=== PATIENT | female | born 1965 | race Caucasian/White ===

== ENCOUNTER → 2016-07-03 | Outpatient (CLI) | payer OTHER ==
[~2016-07-03] MED LIST: ALPRAZOLAM0.5 MG PO; AMLODIPINE BESYL5 MG PO; ANEXSIA 7.5/3251 TA1 PO; ASPIRIN81 MG PO; CELEXA PO; CYANOCOBAL1000 MCG/1 INJ; DEXILANT60 MG PO; FLOMAX0.4 M1 DOB; HYDROCODON-ACE1 EAC5 PO; HYDROCODONE/APA1 T16 PO; LANSOPRAZOLE30 M2 PO; LO-DOSE ASPIRIN81 M1 PO; LORTAB 10/500 T1 TAB PO; LORTAB 7.51 TAB 7.5/ DOB; NAPROXEN PO; ONDANSETRON HCL4 M1 PO; TRIAMTERENE-HCT1 TA6 PO; VITAMIN B12 SHOT
--- NOTE | ~2016-07-03 | CT57 ---
[facility] A Service of [facility] & [facility] RADIOLOGY TEXT RESULTS PATIENT: TRU KING LOCATION: [facility] : 63 UNIT #: [id number] AGE: [address]: Shaun Randhawa MD SEX: F ORDER DR: [id number] [facility] [address] [facility]. [place], [place] [address] [id number] O MR#: [id number] Acc #: [id number] NAME: TRU KING : 1965 SEX: F STUDY DATE/TIME: 07/03/2016 7:22 UNIT: [facility] ROOM: STUDY DESCRIPTION: CT Chest Wo Cont Attending Physician: Shaun Randhawa M.D. Ordering Physician: Shaun Randhawa M.D. Primary Care Physician: Deann Knutson M.D. MEDICAL IMAGING REPORT This report is preliminary unless electronic signature is present EXAM CT chest without contrast INDICATION Lung cancer. Patient also has a history of malignant neoplasm of the peritoneum. This exam is requested for surveillance for metastatic disease. Comparison is made to prior study from 05/08/2016. TECHNIQUE Axial CT images were obtained from the thoracic inlet through the dome of the diaphragm. No intravenous contrast material was administered. This CT exam was performed with one or more of the following radiation dose reduction techniques: automatic control, adjustment of mA and/or kV according to patient size, and iterative reconstruction. FINDINGS Patient has innumerable noncalcified pulmonary nodules characteristic of metastatic disease. There has been what I think is probably a wedge resection of a previously identified nodule which was seen within the left upper lobe on a study from March of 2016. Many of these nodules I think are stable in size when compared to the prior exam, however I do think a few of them have increased in size which may reflect some mild progression of disease. For example 1 adjacent to the left cardiac border now measures 7 mm in size. Previously measured about 3 mm. While another which is adjacent to inferior right pulmonary vein that measures 5 mm previously it measured about 4 mm. The thyroid gland and trachea appear within normal limits. There is a small hiatal hernia. There is no pleural or pericardial effusion. This patient has a left internal subclavian vein MediPort which terminates in the superior vena cava on these images the reservoir of the port does appear to be oriented perpendicular to the sternum rather than parallel to it which potentially may make this port difficult to access. Mediastinal STS. [facility] A Service of [facility] & [facility] RADIOLOGY TEXT RESULTS PATIENT: TRU KING LOC[facility]: [facility] : 63 UNIT #: [id number] AGE: [address]: Shaun Randhawa MD SEX: F ORDER DR: lymph nodes do not appear pathologically enlarged. Images through the upper abdomen do not demonstrate any acute abnormalities. Review of bony windows does not demonstrate any aggressive osseous abnormalities. IMPRESSION 1. Patient is again noted to have innumerable noncalcified pulmonary nodules characteristic of pulmonary metastatic disease. Many of the nodules are stable in size and appearance when compared to the prior study from March of 2016 however I do think some of them have increased slightly in size which may reflect some mild progression of disease. No new nodules are identified. 2. Patient is noted to have a left subclavian MediPort which terminates in the superior vena cava. The reservoir of the port is oriented perpendicular to the sternum rather than parallel to it which potentially may make it difficult to access. Please see the body of the report for any other additional incidental findings. Dictated by... Kathie Key M.D. THIS IS AN ELECTRONICALLY VERIFIED REPORT Kathie Key M.D. at 07/04/2016 4:46 PM AFF/rnr TD: 07/03/2016 19:39 JOB #: [id number] MEDICAL IMAGING REPORT COPY
== END | disposition home or self-care (01) ==
LOC: CCAT 06:57
DX: C78.01 Secondary malignant neoplasm of right lung (principal); C48.2 Malignant neoplasm of peritoneum, unspecified; D50.9 Iron deficiency anemia, unspecified; R91.1 Solitary pulmonary nodule; M54.5 Low back pain; R91.8 Other nonspecific abnormal finding of lung field
CPT/HCPCS: 71250

== ENCOUNTER → 2016-07-11 | Outpatient (CLI) | payer MEDICARE ==
--- NOTE | ~2016-07-11 | XA80 ---
[facility] A Service of [facility] & [facility] RADIOLOGY TEXT RESULTS PATIENT: TRU KING LOCATION: [facility] : 63 UNIT #: [id number] AGE: [address]: Shaun Randhawa MD SEX: F ORDER DR: [id number] [facility] [address] [facility]. [place], [place] [address] [id number] O MR#: [id number] Acc #: [id number] NAME: TRU KING : 1965 SEX: F STUDY DATE/TIME: 07/11/2016 8:48 UNIT: [facility] ROOM: STUDY DESCRIPTION: XA CVC Remove Tunneled Cath W Attending Physician: Shaun Randhawa M.D. Ordering Physician: Shaun Randhawa M.D. Primary Care Physician: Primary Care Physician No MEDICAL IMAGING REPORT This report is preliminary unless electronic signature is present EXAM Port-A-Cath extraction 07/11/2016. HISTORY The patient no longer utilizing a left subclavian Port-A-Cath PROCEDURE Informed consent was obtained. Full standard sterile technique was utilized including sterile preparation, barrier draping, sterile gowns and gloves as well as caps and masks. The prior incision was anesthetized locally, and new incision created. This was used to extract in-total the Port-A-Cath and infusion catheter. The pocket was then closed with interrupted deep fascial 3-0 Vicryl sutures and running subcuticular 4-0 Monocryl sutures and butylcyanoacrylate glue. There were no complications. fentanyl and Versed were administered for IV conscious sedation. Monitoring provided by the nursing staff throughout the procedure. Total sedation time 30 minutes. Total fluoroscopy time 0.1 minutes, 2 spot images obtained. IMPRESSION Successful extraction of left subclavian Jslglv-S-Bvxy. No complications. Dictated by... Luis Martinez M.D. THIS IS AN ELECTRONICALLY VERIFIED REPORT Luis Martinez M.D. at 07/16/2016 5:08 PM TEV/jenn [facility] A Service of [facility] & [facility] RADIOLOGY TEXT RESULTS PATIENT: TRU KING LOCATION: [facility] : 63 UNIT #: [id number] AGE: [address]: Shaun Randhawa MD SEX: F ORDER DR: TD: 07/14/2016 11:48 JOB #: [id number] MEDICAL IMAGING REPORT COPY
[2016-07-11 08:39] LABS: HEMATOCRIT 37.3 % (35.0-45.0); HEMOGLOBIN 12.2 gm/dL (12.0-16.0); MEAN CELL VOLUME 82.8 FL (83-96); MEAN CORPUSCULAR HEMOGLOBIN 27.1 PG (28-34); MEAN CORPUSCULAR HGB CONC 32.7 g/dL (30-36); RED BLOOD COUNT 4.5 X10e (3.90-5.30); RED CELL DISTRIBUTION WIDTH 17.4 % (11.0-15.5); WHITE BLOOD COUNT 5.3 X10e3 (4.0-10.5)
[2016-07-11 08:49] LABS: PARTIAL THROMBOPLASTIN TIME 27.1 SECONDS (23.5-31.3)
== END | disposition home or self-care (01) ==
LOC: CIVR 08:02
PROVIDERS: Internal Medicine Hematology & Oncology
DX: Z45.2 Encounter for adjustment and management of vascular access device (principal); D50.9 Iron deficiency anemia, unspecified; C48.2 Malignant neoplasm of peritoneum, unspecified; R91.1 Solitary pulmonary nodule; M54.5 Low back pain; C78.01 Secondary malignant neoplasm of right lung; T82.868A Thrombosis due to vascular prosthetic devices, implants and grafts, initial encounter; I10 Essential (primary) hypertension; Z79.899 Other long term (current) drug therapy; Z79.82 Long term (current) use of aspirin; Z80.9 Family history of malignant neoplasm, unspecified; Z80.3 Family history of malignant neoplasm of breast; Z88.1 Allergy status to other antibiotic agents; Z88.8 Allergy status to other drugs, medicaments and biological substances
CPT/HCPCS: 36415; 77001; 85027; 85610; 85730; J2250; J3010

== ENCOUNTER → 2016-08-13 | Outpatient (CLI) | payer MEDICARE ==
--- NOTE | ~2016-08-13 | CT57 ---
[facility] A Service of [facility] & [facility] RADIOLOGY TEXT RESULTS PATIENT: TRU KING LOCATION: [facility] : 63 UNIT #: [id number] AGE: [address]: Shaun Randhawa MD SEX: F ORDER DR: [id number] [facility] [address] [facility]. [place], [place] [address] [id number] O MR#: [id number] Acc #: [id number] NAME: TRU KING : 1965 SEX: F STUDY DATE/TIME: 08/13/2016 08:58 UNIT: [facility] ROOM: STUDY DESCRIPTION: CT Chest Wo Cont Attending Physician: Shaun Randhawa M.D. Referring Physician: Shaun Randhawa M.D. Ordering Physician: Shaun Randhawa M.D. Primary Care Physician: Shaun Randhawa M.D. MEDICAL IMAGING REPORT This report is preliminary unless electronic signature is present EXAM CT chest without contrast 08/13/2016 0858 hours HISTORY Left-sided chest pain since March 2016 worsening over the past 2 weeks. Followup lung nodule. History of previous leiosarcoma of the abdomen, previous lung cancer. COMPARISON CT chest 07/03/2016. TECHNIQUE Helical noncontrasted images were obtained from the thoracic inlet through the adrenal glands. Sagittal and coronal reconstructions were performed. Total exam DLP 197 mGy-cm. This CT examination was performed with one or more of the following radiation dose reduction techniques: automatic exposure control, adjustment of mA and/or kV according to patient size, and iterative reconstruction. FINDINGS Images through the thoracic inlet are normal. Images through the chest demonstrate mild coronary calcifications. There is no pathologic adenopathy. Benign calcified right paratracheal nodes are present and unchanged. There is no pericardial or pleural fluid. There is a very small esophageal hiatal hernia. Lung window images demonstrate bilateral multiple well circumscribed noncalcified pulmonary and parenchymal nodules with mid and lower lobe predominance. These are unchanged in number. Nodules are felt to be stable to slightly increased in size. Example right apical nodule is 8 mm previously 6 mm. Example right lower lobe nodule abutting the posterior margin of the dome of the diaphragm is 0.65 cm previously 0.47 cm. [facility] A Service of [facility] RADIOLOGY TEXT RESULTS PATIENT: TRU KING LOCATION: [facility] : 63 UNIT #: [id number] AGE: [address]: Shaun Randhawa MD SEX: F ORDER DR: Example left lower lobe nodule abutting the left posterior pericardium measures 0.66 cm previously 0.69 cm. Example nodule at the lateral left lower lobe measures 0.75 cm previously 0.61 cm. No definite new nodules are seen. There is no superimposed airspace density. There is no pleural effusion or pneumothorax. There is a suture line in the left upper lung unchanged. Limited views through the upper abdomen are negative. Bone window images demonstrate no rib or thoracic spine lesion. IMPRESSION 1. Again demonstrated are bilateral well-circumscribed noncalcified soft tissue nodules in both lungs most consistent with multiple pulmonary metastases which are unchanged in number. These are all quite small. Several of them are stable in size and several measure 1 mm larger than on 07/03/2016. No definite new nodules are seen. 2. No adenopathy, pleural effusion, pneumothorax or bone lesion. Dictated by... Nancie Landeros M.D. THIS IS AN ELECTRONICALLY VERIFIED REPORT Nancie Landeros M.D. at 08/13/2016 2:28 PM GRZEGORZ/alanna TD: 08/13/2016 14:14 JOB #: [id number] MEDICAL IMAGING REPORT Page 1 of 1 COPY
== END | disposition home or self-care (01) ==
LOC: CCAT 08:33
DX: R91.1 Solitary pulmonary nodule (principal); D50.9 Iron deficiency anemia, unspecified; C48.2 Malignant neoplasm of peritoneum, unspecified; M54.5 Low back pain; R91.8 Other nonspecific abnormal finding of lung field
CPT/HCPCS: 71250

== ENCOUNTER → 2016-10-16 | Outpatient (CLI) | payer MEDICARE ==
--- NOTE | ~2016-10-16 | CT57 ---
[facility] A Service of [facility] RADIOLOGY TEXT RESULTS PATIENT: TRU KING LOCATION: [facility] : 63 UNIT #: [id number] AGE: [address]: Shaun Randhawa MD SEX: F ORDER DR: [id number] [address] [address] [id number] O MR#: [id number] Acc #: [id number] NAME: TRU KING : 1965 SEX: F STUDY DATE/TIME: 10/16/2016 12:24 UNIT: [facility] ROOM: STUDY DESCRIPTION: CT Chest Wo Cont Attending Physician: Shaun Randhawa M.D. Referring Physician: Shaun Randhawa M.D. Ordering Physician: Shaun Randhawa M.D. Primary Care Physician: Shaun Randhawa M.D. MEDICAL IMAGING REPORT This report is preliminary unless electronic signature is present. EXAM CT chest INDICATIONS Hemoptysis. Lung cancer diagnosed March 2016. Left upper lobe pulmonary malignancy. TECHNIQUE CT of the chest without contrast. Coronal and sagittal reconstructions were obtained. The CT exam was performed with one or more of the following radiation dose reduction techniques: automatic exposure control, adjustment of mA and/or kV according to patient size, and iterative reconstruction. COMPARISON CT chest dated 08/13/2016. FINDINGS There has been prior surgical wedge resection of the posterior aspect of the left upper lobe. There are innumerable small pulmonary nodules scattered throughout both lungs. Majority of these nodules have not significantly changed from prior study. These nodules range in size from a few millimeters to 1.0 cm. Index right lower lobe pulmonary nodule (image 94) measures 1.0 cm, unchanged. No pathologically enlarged mediastinal or hilar lymph nodes. No pericardial or pleural effusion. There is a low-attenuation mass in the posterior right hepatic lobe. This mass measures at least 7 cm. This lesion is not visible on the prior noncontrast CT of the chest. Would recommend dedicated imaging of the liver with contrast enhanced CT. The adrenal glands are normal in STS. [facility] A Service of [facility] & [facility] RADIOLOGY TEXT RESULTS PATIENT: TRU KING LOCATION: [facility] : 63 UNIT #: [id number] AGE: [address]: Shaun Randhawa MD SEX: F ORDER DR: appearance. No acute osseous abnormalities. IMPRESSION 1. Numerous subcentimeter pulmonary nodules scattered throughout both lungs are unchanged from most recent 08/13/2016 exam. Please note that have slowly enlarged over time and the change is more evident from exams dating back to May 2016. 2. Development of a new hypodense mass in the right hepatic lobe measuring up to 7 cm. This is poorly evaluated without contrast, however is concerning for a hepatic metastatic focus. Consider a CT scan of the abdomen for further evaluation. There may be additional lesions in the liver, however, sensitivity is diminished without contrast. 3. Not mentioned above, there is an exophytic lesion off of the mid left kidney with indeterminate density. This probably represents a cyst, however, its development is concerning for possible metastatic focus. This measured up to 1.9 cm. Dictated by... Chaitanya Valencia M.D. THIS IS AN ELECTRONICALLY VERIFIED REPORT Chaitanya Valencia M.D. at 10/16/2016 3:57 PM MARY/margret TD: 10/16/2016 14:57 JOB #: [id number] MEDICAL IMAGING REPORT Page 1 of 1
== END | disposition home or self-care (01) ==
LOC: SCT 12:16
DX: D50.9 Iron deficiency anemia, unspecified (principal); C48.2 Malignant neoplasm of peritoneum, unspecified; R91.1 Solitary pulmonary nodule; M54.5 Low back pain; R91.8 Other nonspecific abnormal finding of lung field
CPT/HCPCS: 71250

== ENCOUNTER → 2016-10-24 | Outpatient (CLI) | payer MEDICARE ==
--- NOTE | ~2016-10-24 | CT6 ---
[facility] A Service of [facility] & [facility] RADIOLOGY TEXT RESULTS PATIENT: TRU KING LOCATION: [facility] : 63 UNIT #: [id number] AGE: [address]: Shaun Randhawa MD SEX: F ORDER DR: [id number] [facility] [address] [facility]. [place], [place] [address] [id number] O MR#: [id number] Acc #: [id number] NAME: TRU KING : 1965 SEX: F STUDY DATE/TIME: 10/24/2016 14:30 UNIT: [facility] ROOM: STUDY DESCRIPTION: CT Abdomen WWo Cont Attending Physician: Shaun Randhawa M.D. Referring Physician: Shaun Randhawa M.D. Ordering Physician: Shaun Randhawa M.D. Primary Care Physician: Shaun Randhawa M.D. MEDICAL IMAGING REPORT This report is preliminary unless electronic signature is present EXAM CT abdomen without and with contrast (hepatic imaging protocol). 10/24/2016 HISTORY Hypodense mass in the right hepatic lobe on CT chest from 10/16/2016 for which additional imaging followup was recommended. History of lung cancer diagnosed March 2016. Additionally, hypodense left renal lesion seen on recent CT chest. COMPARISON CT chest without contrast 10/16/2016. PROCEDURE Precontrast and dynamic postcontrast imaging was obtained through the abdomen. Enteric contrast was not administered. Sagittal and coronal reformatted images were obtained. This CT exam was performed with one or more of the following radiation dose reduction techniques: automatic exposure control, adjustment of mA and/or kV according to patient size, and iterative reconstruction. FINDINGS Heterogeneous low-density mass lesion is demonstrated within the right hepatic lobe measuring nearly 7 cm. It demonstrates no appreciable washout characteristics or internal hyperenhancement but is nonetheless highly suspicious for a hepatic metastatic disease. There is a more ill-defined region of increased density medial right hepatic lobe near the dome measuring nearly 3 cm which normalizes to background parenchyma on more delayed-phase imaging, thought to represent a transient hepatic attenuation difference. No left hepatic lobe lesion is identified. Major hepatic vasculature appears patent. No pathologically enlarged lymph STS. [facility] A Service of [facility] RADIOLOGY TEXT RESULTS PATIENT: TRU KING LOCATION: [facility] : 63 UNIT #: [id number] AGE: [address]: Shaun Randhawa MD SEX: F ORDER DR: nodes are seen within the upper abdomen. IMPRESSION 1. A 2.2 cm enhancing mass projects exophytically from the lateral left mid kidney (precontrast Hounsfield units 20.1, postcontrast Hounsfield units 50.6), highly suspicious for potential renal malignancy. It is a new finding compared to the CT abdomen from 03/17/2015. 2. Incidental note is made of low density lesion in the anterior left mid kidney measuring 9 mm, compatible with a cyst. Right kidney appears unremarkable. 3. The gallbladder, pancreas, adrenals are normal. Sparse diverticular changes are seen within the imaged sigmoid colon without evidence of acute diverticulitis. 4. Surgical clips are present within the right lower quadrant of the abdomen. No suspicious osteolytic or osteoblastic lesions are identified. 5. Numerous small noncalcified nodules are seen throughout the imaged lung bases, one of the largest in the left lower lobe measuring 1.1 cm, consistent with pulmonary metastatic disease. These findings have been documented on the recent 10/16/2016 CT chest. Chronic scarring in the lingula. 6. Approximately 7 cm heterogeneous low-density mass lesion in the right hepatic lobe is consistent with the appearance of malignancy until proven otherwise. What appears to be a small perfusional attenuation difference is incidentally noted within the right hepatic lobe immediately adjacent to it. 7. There is an enhancing 2.2 cm mass projecting exophytically and laterally from the left mid kidney highly suspicious for potential renal malignancy. Urologic consultation is recommended. This is a new finding since previous 2014 CT abdomen. 8. Numerous noncalcified pulmonary nodules in the lung bases consistent with pulmonary metastatic disease. 9. Uncomplicated colonic diverticulosis. 10. Benign left renal cyst. Dictated by... Martha Willard M.D. THIS IS AN ELECTRONICALLY VERIFIED REPORT Martha Willard M.D. at 10/25/2016 8:36 AM Dorene TD: 10/24/2016 16:26 JOB #: [id number] MEDICAL IMAGING REPORT Page 1 of 1 COPY
[2016-10-24 17:41] LABS: POC - CREATININE 0.82 mg/dL (0.44-1.03); POC - GFR >60.0 mL/min (>60)
== END | disposition home or self-care (01) ==
LOC: CCAT 13:42
PROVIDERS: Internal Medicine Hematology & Oncology
DX: C48.2 Malignant neoplasm of peritoneum, unspecified (principal); D50.9 Iron deficiency anemia, unspecified; R91.1 Solitary pulmonary nodule; M54.5 Low back pain; N28.89 Other specified disorders of kidney and ureter; R91.8 Other nonspecific abnormal finding of lung field; K76.9 Liver disease, unspecified; N28.1 Cyst of kidney, acquired; K57.30 Diverticulosis of large intestine without perforation or abscess without bleeding; Z98.890 Other specified postprocedural states
CPT/HCPCS: 74170; 82565; Q9967

== ENCOUNTER → 2016-10-31 | Outpatient (CLI) | payer MEDICARE | END | disposition home or self-care (01) | LOC: CECH 09:51 | DX: Z51.11 Encounter for antineoplastic chemotherapy (principal); D50.9 Iron deficiency anemia, unspecified; C48.2 Malignant neoplasm of peritoneum, unspecified; R91.1 Solitary pulmonary nodule; M54.5 Low back pain; I51.7 Cardiomegaly | CPT/HCPCS: 93306 ==

== ENCOUNTER → 2016-11-02 | Outpatient (CLI) | payer MEDICARE ==
--- NOTE | ~2016-11-02 | XA60 ---
[facility] A Service of [facility] & [facility] RADIOLOGY TEXT RESULTS PATIENT: TRU KING [facility] : 63 UNIT #: [id number] AGE: [address]: Shaun Randhawa MD SEX: F ORDER DR: [id number] [address] [place], [place] [address] [id number] O MR#: [id number] Acc #: [id number] NAME: TRU KING. : 1965 SEX: F STUDY DATE/TIME: 11/02/2016 [facility] ROOM: STUDY DESCRIPTION: XA BX Perc Liver Attending Physician: Shaun Randhawa M.D. Referring Physician: Shaun Randhawa M.D. Ordering Physician: Shaun Randhawa M.D. Primary Care Physician: Shaun Randhawa M.D. MEDICAL IMAGING REPORT This report is preliminary unless electronic signature is present EXAM CT guided liver biopsy INDICATION Ms. King is a 51-year-old woman with a history of lung cancer located within the left upper lobe. It was diagnosed in March of 2016. She underwent a CT scan on October 24, 2016, which showed a mass within the right lobe of the liver near the dome. She has been referred for biopsy. This CT exam was performed with one or more of the following radiation dose reduction techniques: automatic exposure control, adjustment of mA and/or kV according to patient size, and iterative reconstruction. PROCEDURE The risks, benefits and alternatives to the procedure were explained to the patient, and signed, informed consent was obtained. She was placed in the left lateral decubitus position. Preliminary CT scan was performed through the region of interest. An appropriate site overlying the patient's right hepatic region was selected. The overlying skin was marked, the patient was prepped and draped in the usual sterile fashion. Time out was performed as per protocol. Skin and subcutaneous tissues were anesthetized with buffered lidocaine and a 17 gauge coaxial needle was advanced to the periphery of the lesion. At this point multiple core samples were obtained using an 18-gauge BioPince biopsy. Guide needle was then removed and manual pressure was applied till hemostasis was obtained. The patient did receive moderate sedation. I supervised the IVR nurse and monitored the patient's vital signs for a total of 1 hour of face to face time. IMPRESSION Technically successful CT guided liver biopsy as noted above. CT was used during the procedure and permanent images were saved. [facility] A Service of [facility] RADIOLOGY TEXT RESULTS PATIENT: TRU KING [facility] : 63 UNIT #: [id number] AGE: [address]: Shaun Randhawa MD SEX: F ORDER DR: Dictated by... Kathie Key M.D. THIS IS AN ELECTRONICALLY VERIFIED REPORT Kathie Key M.D. at 11/08/2016 8:14 AM CHRISTIAN/kelechi TD: 11/05/2016 16:23 JOB #: [id number] MEDICAL IMAGING REPORT Page 1 of 1 COPY
[2016-11-02 08:29] LABS: HEMATOCRIT 38.4 % (35.0-45.0); HEMOGLOBIN 12.2 gm/dL (12.0-16.0); MEAN CELL VOLUME 83.1 FL (83-96); MEAN CORPUSCULAR HEMOGLOBIN 26.5 PG (28-34); MEAN CORPUSCULAR HGB CONC 31.9 g/dL (30-36); RED BLOOD COUNT 4.62 X10e (3.90-5.30); RED CELL DISTRIBUTION WIDTH 15.3 % (11.0-15.5); WHITE BLOOD COUNT 5.2 X10e3 (4.0-10.5)
[2016-11-02 08:49] LABS: INR 0.9; PARTIAL THROMBOPLASTIN TIME 26.9 SECONDS (23.5-31.3); PROTHROMBIN TIME (PATIENT) 10.3 SECONDS (10.0-11.7)
== END | disposition home or self-care (01) ==
LOC: CIVR 07:57
PROVIDERS: Internal Medicine Hematology & Oncology
DX: K76.0 Fatty (change of) liver, not elsewhere classified (principal); K76.89 Other specified diseases of liver; D50.9 Iron deficiency anemia, unspecified; C48.2 Malignant neoplasm of peritoneum, unspecified; R91.1 Solitary pulmonary nodule; M54.5 Low back pain; G47.30 Sleep apnea, unspecified
CPT/HCPCS: 36415; 77012; 85027; 85610; 85730; 88307; J2250; J2405; J3010

== ENCOUNTER → 2016-11-07 | Outpatient (CLI) | payer MEDICARE ==
--- NOTE | ~2016-11-07 | XA91 ---
[facility] A Service of [facility] & [facility] RADIOLOGY TEXT RESULTS PATIENT: TRU KING LOCATION: [facility] : 63 UNIT #: [id number] AGE: [address]: Shaun Randhawa MD SEX: F ORDER DR: [id number] [facility] [address] [facility]. [place], [place] [address] [id number] O MR#: [id number] Acc #: [id number] NAME: TRU KING. : 1965 SEX: F STUDY DATE/TIME: 11/07/2016 10:46 UNIT: [facility] ROOM: STUDY DESCRIPTION: XA CVC Tunneled W Port Attending Physician: Shaun Randhawa M.D. Ordering Physician: Shaun Randhawa M.D. Primary Care Physician: Shaun Randhawa M.D. MEDICAL IMAGING REPORT This report is preliminary unless electronic signature is present EXAM Port placement with ultrasound and fluoroscopic guidance. HISTORY Solitary pulmonary nodule. Malignancy. Iron-deficiency anemia. Need for venous access. TECHNIQUE The procedure was explained to the patient, including risks, benefits and complications. Informed consent was obtained, and a formal time-out procedure was utilized. Full barrier sterile technique was employed via standard protocol, including sterile drapes, long drapes, prepped with ChloraPrep, caps, masks, gloves, gowns and shoe covers. Sterile ultrasound probe cover and sternal ultrasound gel. Conscious sedation was utilized with intravenous Versed and Fentanyl that was administered by nursing, who was present monitoring the patient during the examination. Total physician face time with conscious sedation of 25 minutes. Using full barrier sterile technique and following local anesthesia with 1% Xylocaine, a micropuncture set was used to access the right internal jugular vein. Ultrasound was used to confirm vessel patency, which was confirmed, and permanent ultrasound images were recorded. A 0.035 guidewire was passed down the micropuncture sheath. The tract was dilated, and a peel-away sheath was placed. Attention was then directed to the right infraclavicular space where a port pocket was created after local anesthesia with 1% lidocaine with epinephrine. Blunt and sharp dissection was utilized. A Bard 8-Turkish power port was placed into the pocket and tunnel from the pocket site to the jugular vein puncture site. It was measured to 23.5 cm, cut, and deployed through the sheath with the tip positioned in the upper right STS. [facility] A Service of [facility] RADIOLOGY TEXT RESULTS PATIENT: TRU KING LOCATION: [facility] : 63 UNIT #: [id number] AGE: [address]: Shaun Randhawa MD SEX: F ORDER DR: atrium in satisfactory position. The port pocket site was closed with an interrupted subcutaneous layer of 3-0 Vicryl suture, followed by running 4-0 subcuticular stitch with Monocryl. Dermabond glue was applied at the port site and at the jugular vein puncture site. The patient tolerated the procedure well. Total fluoroscopy time 0.1 minutes with a total dose of 1 mGy-cm. IMPRESSION Successful port placement with conscious sedation, as described above. The port was flushed with heparin and the port flushed and aspirated easily. Dictated by... Mohit Walters M.D. THIS IS AN ELECTRONICALLY VERIFIED REPORT Mohit Walters M.D. at 11/08/2016 6:47 AM Roberto TD: 11/07/2016 18:20 JOB #: [id number] MEDICAL IMAGING REPORT Page 1 of 1 COPY
[2016-11-07 09:12] LABS: HEMATOCRIT 37.3 % (35.0-45.0); HEMOGLOBIN 11.9 gm/dL (12.0-16.0); MEAN CELL VOLUME 83.3 FL (83-96); MEAN CORPUSCULAR HEMOGLOBIN 26.5 PG (28-34); MEAN CORPUSCULAR HGB CONC 31.8 g/dL (30-36); RED BLOOD COUNT 4.48 X10e (3.90-5.30); RED CELL DISTRIBUTION WIDTH 15.3 % (11.0-15.5); WHITE BLOOD COUNT 5.1 X10e3 (4.0-10.5)
[2016-11-07 09:25] LABS: PARTIAL THROMBOPLASTIN TIME 26.7 SECONDS (23.5-31.3); PROTHROMBIN TIME (PATIENT) 10.4 SECONDS (10.0-11.7)
== END | disposition home or self-care (01) ==
LOC: CIVR 08:37
PROVIDERS: Internal Medicine Hematology & Oncology
DX: C48.2 Malignant neoplasm of peritoneum, unspecified (principal); Z45.2 Encounter for adjustment and management of vascular access device; C78.01 Secondary malignant neoplasm of right lung; C78.02 Secondary malignant neoplasm of left lung; D50.9 Iron deficiency anemia, unspecified; M54.5 Low back pain
CPT/HCPCS: 36415; 76937; 77001; 85027; 85610; 85730; C1788; C1894; J0690; J1642; J2250; J2405; J3010

== ENCOUNTER → 2016-11-19 | Outpatient (CLI) | payer MEDICARE ==
--- NOTE | ~2016-11-19 | XA231 ---
[facility] A Service of [facility] RADIOLOGY TEXT RESULTS PATIENT: TRU KING LOCATION: [facility] : 63 UNIT #: [id number] AGE: [address]: Paddy Soto MD SEX: F ORDER DR: [id number] [facility]. [place], [place] [address] [id number] O MR#: [id number] Acc #: [id number] NAME: TRU KING : 1965 SEX: F STUDY DATE/TIME: 11/19/2016 10:59 UNIT: [facility] ROOM: STUDY DESCRIPTION: XA Consult Attending Physician: Paddy Soto M.D. Referring Physician: Paddy Soto M.D. Primary Care Physician: Shaun Randhawa M.D. MEDICAL IMAGING REPORT This report is preliminary unless electronic signature is present EXAM 10-day port incision check. INDICATIONS Recent chest port placed for chemotherapy. FINDINGS The chest port site was inspected. The incision was well healed although there is a tiny stitch protruding from the lateral aspect of the incision. There is no evidence of any discharge purulence erythema or swelling. I did prepped the area sterilely with 2% Chlorhexidine and used sterile scissors and forceps and was able to clip the end of the sutures so that it was no longer protruding and I placed a tiny Steri-Strip to allow the site to completely heal. The patient will follow up with her oncologist for chemotherapy. IMPRESSION Well healed chest port site although there was a tiny stitch protruding from the lateral aspect of the site which I removed under sterile conditions. Dictated by... Paddy Soto M.D. THIS IS AN ELECTRONICALLY VERIFIED REPORT Paddy Soto M.D. at 11/21/2016 5:01 PM TATYANA/margret TD: 11/20/2016 10:58 JOB #: [id number] MEDICAL IMAGING REPORT [facility] A Service of [facility] RADIOLOGY TEXT RESULTS PATIENT: TRU KING LOCATION: [facility] #: [id number] : 63 UNIT #: [id number] AGE: [address]: Paddy Soto MD SEX: F ORDER DR: Page 1 of 1 COPY
== END | disposition home or self-care (01) ==
LOC: CIVR 10:52
DX: Z45.2 Encounter for adjustment and management of vascular access device (principal)
CPT/HCPCS: 76140

== ENCOUNTER → 2016-12-10 | Outpatient (CLI) | payer MEDICARE ==
[2016-12-10 09:23] LABS: HEMATOCRIT 30.8 % (35.0-45.0); HEMOGLOBIN 10.2 gm/dL (12.0-16.0); MEAN CELL VOLUME 80.8 FL (83-96); MEAN CORPUSCULAR HEMOGLOBIN 26.8 PG (28-34); MEAN CORPUSCULAR HGB CONC 33.1 g/dL (30-36); MEAN PLATELET VOLUME 7.9 FL (6.5-11.5); RED BLOOD COUNT 3.81 X10e (3.90-5.30); RED CELL DISTRIBUTION WIDTH 14.4 % (11.0-15.5); WHITE BLOOD COUNT 0.7 X10e3 (4.0-10.5)
== END | disposition home or self-care (01) ==
LOC: CSSDAY 08:18
PROVIDERS: Internal Medicine Hematology & Oncology
DX: C48.2 Malignant neoplasm of peritoneum, unspecified (principal); Z79.899 Other long term (current) drug therapy
CPT/HCPCS: 85027; 96374; 96413; C9485; J1100; J1200; J1642; J2405